=== PATIENT | female | born 1965 | race American Indian/Alaskan Native ===

== ENCOUNTER 2019-02-13 02:31 | Emergency (ER) | payer OTHER ==
[2019-02-13 02:54] LABS: Basophils % (Auto) 0.2 % (0.0-1.8); Eosinophils # (Auto) 0.2 K/mm3 (0.0-0.4); Hematocrit 33.5 % (30.3-42.9); Hemoglobin 10.4 gm/dl (10.1-14.3); Lymphocytes # (Auto) 2.1 K/mm3 (1.2-5.4); Lymphocytes % (Auto) 12.6 % (13.4-35.0); Mean Corpuscular HGB Conc 31 % (30-34); Monocytes # (Auto) 1.1 K/mm3 (0.0-0.8); Monocytes % (Auto) 6.7 % (0.0-7.3); Platelet Count 353 K/mm3 (140-440); Red Blood Count 5.51 M/mm3 (3.65-5.03)
[2019-02-13 03:13] LABS: Alanine Aminotransferase 12 units/L (7-56); Albumin 3.7 g/dL (3.9-5); BUN/Creatinine Ratio 13; Blood Urea Nitrogen 9 mg/dL (7-17); Calcium 10.2 mg/dL (8.4-10.2); Hemolysis Index 3
[2019-02-13 03:30] LABS: Mean Corpuscular Volume 61 fl (79-97); Red Cell Distribution Width 22.9 % (13.2-15.2)
[2019-02-13 03:35] LABS: Bilirubin,Urine NEG (Negative); Blood,Urine SM (Negative); Calcium Oxalate Crystals,Urine 3+; Color,Urine Amber (Yellow); HCG Qualitative,Urine Negative (Negative); Mucus,Urine 3+ /HPF; Urobilinogen,Urine < 2.0 mg/dL (<2.0)
[2019-02-13] MEDS ORDERED: ZOFRAN IV ONE (07:41)
[2019-02-13] MEDS ORDERED: MORPHINE IV ONE (07:41)
[2019-02-13] MEDS ORDERED: NACL 0.9% 1000 ML 1,000 ML IV ONE (07:41)
--- NOTE | 2019-02-13 07:49 | Emergency Department Report ---
ED General Adult HPI - General Chief complaint: Abdominal Pain Stated complaint: ABD PAIN/DIARRHEA/EMESIS Time Seen by Provider: 02/13/19 07:11 Source: patient Mode of arrival: Ambulatory Limitations: No Limitations - History of Present Illness Initial comments: Patient complains of nausea, vomiting, diarrhea since . Patient also complains of abdominal pain that she describes as sharp in nature. Patient is a very made her symptoms better or worse. She denies chest pain, shortness breath, or headache. -: Sudden Location: abdomen Radiation: non-radiation Severity scale (0 -10): 5 Quality: sharp Consistency: constant Improves with: none Worsens with: none Associated Symptoms: denies other symptoms Treatments Prior to Arrival: none - Related Data Previous Rx's Medication Instructions Recorded Last Taken Type Amlodipine Besylate [Norvasc] 5 mg PO QDAY #30 tablet 02/13/19 Unknown Rx Ciprofloxacin HCl [Ciprofloxacin 500 mg PO Q12H #20 tab 02/13/19 Unknown Rx TAB] HYDROcodone/APAP 7.5-325 [[place] 1 each PO Q6HR PRN #15 tablet 02/13/19 Unknown Rx 7.5/325] Ondansetron [Zofran Odt] 4 mg PO Q4HR PRN #20 tab.rapdis 02/13/19 Unknown Rx Promethazine [Phenergan TAB] 25 mg PO Q6HR PRN #20 tab 02/13/19 Unknown Rx metroNIDAZOLE [Flagyl] 500 mg PO Q12HR #20 tab 02/13/19 Unknown Rx Allergies Allergy/AdvReac Type Severity Reaction Status Date / Time No Known Allergies Allergy Unverified 02/13/19 02:34 ED Review of Systems ROS: Stated complaint: ABD PAIN/DIARRHEA/EMESIS Other details as noted in HPI Comment: All other systems reviewed and negative Constitutional: denies: chills, fever Eyes: denies: eye pain, eye discharge, vision change ENT: denies: ear pain, throat pain Respiratory: denies: cough, shortness of breath, wheezing Cardiovascular: denies: chest pain, palpitations Endocrine: no symptoms reported Gastrointestinal: abdominal pain. denies: nausea, diarrhea Genitourinary: denies: urgency, dysuria, discharge Musculoskeletal: denies: back pain, joint swelling, arthralgia Skin: denies: rash, lesions Neurological: denies: headache, weakness, paresthesias Psychiatric: denies: anxiety, depression Hematological/Lymphatic: denies: easy bleeding, easy bruising ED Past Medical Hx - Past Medical History Previous Medical History?: No - Surgical History Past Surgical History?: No - Social History Smoking Status: Never Smoker Substance Use Type: None - Medications Home Medications: Home Medications Medication Instructions Recorded Confirmed Last Taken Type Amlodipine Besylate [Norvasc] 5 mg PO QDAY #30 tablet 02/13/19 Unknown Rx Ciprofloxacin HCl [Ciprofloxacin 500 mg PO Q12H #20 tab 02/13/19 Unknown Rx TAB] HYDROcodone/APAP 7.5-325 [[place] 1 each PO Q6HR PRN #15 tablet 02/13/19 Unknown Rx 7.5/325] Ondansetron [Zofran Odt] 4 mg PO Q4HR PRN #20 tab.rapdis 02/13/19 Unknown Rx Promethazine [Phenergan TAB] 25 mg PO Q6HR PRN #20 tab 02/13/19 Unknown Rx metroNIDAZOLE [Flagyl] 500 mg PO Q12HR #20 tab 02/13/19 Unknown Rx ED Physical Exam - General Limitations: No Limitations General appearance: alert, in no apparent distress - Head Head exam: Present: atraumatic, normocephalic - Eye Eye exam: Present: normal appearance, PERRL, EOMI - ENT ENT exam: Present: mucous membranes dry - Neck Neck exam: Present: normal inspection - Respiratory Respiratory exam: Present: normal lung sounds bilaterally. Absent: respiratory distress - Cardiovascular Cardiovascular Exam: Present: regular rate, normal rhythm. Absent: systolic murmur, diastolic murmur, rubs, gallop - GI/Abdominal GI/Abdominal exam: Present: soft, tenderness (diffusely tender to palpation), normal bowel sounds. Absent: distended - Extremities Exam Extremities exam: Present: normal inspection - Back Exam Back exam: Present: normal inspection - Neurological Exam Neurological exam: Present: alert, oriented X3, CN II-XII intact. Absent: motor sensory deficit - Psychiatric Psychiatric exam: Present: normal affect, normal mood - Skin Skin exam: Present: warm, dry, intact, normal color. Absent: rash ED Course Vital Signs 02/13/19 02/13/19 02/13/19 02:35 02:36 07:37 Temperature 98.4 F 98.4 F 98.5 F Pulse Rate 92 H 91 H 82 Respiratory 18 18 19 Rate Blood Pressure 198/101 198/101 Blood Pressure 195/63 [Right] O2 Sat by Pulse 97 97 100 Oximetry 02/13/19 08:59 Temperature Pulse Rate 87 Respiratory 18 Rate Blood Pressure Blood Pressure 175/66 [Right] O2 Sat by Pulse 100 Oximetry ED Medical Decision Making - Lab Data Result diagrams: 02/13/19 02:41 02/13/19 02:41 Lab Results 02/13/19 02/13/19 02/13/19 Range/Units 02:41 02:41 03:11 WBC 16.7 H (4.5-11.0) K/mm3 RBC 5.51 H (3.65-5.03) M/mm3 Hgb 10.4 (10.1-14.3) gm/dl Hct 33.5 (30.3-42.9) % MCV 61 L (79-97) fl MCH 19 L (28-32) pg MCHC 31 (30-34) % RDW 22.9 H (13.2-15.2) % Plt Count 353 (140-440) K/mm3 Lymph % (Auto) 12.6 L (13.4-35.0) % [place] % (Auto) 6.7 (0.0-7.3) % Eos % (Auto) 1.0 (0.0-4.3) % Baso % (Auto) 0.2 (0.0-1.8) % Lymph # 2.1 (1.2-5.4) K/mm3 [place] # 1.1 H (0.0-0.8) K/mm3 Eos # 0.2 (0.0-0.4) K/mm3 Baso # 0.0 (0.0-0.1) K/mm3 Seg Neutrophils % 79.5 H (40.0-70.0) % Seg Neutrophils # 13.2 H (1.8-7.7) K/mm3 Sodium 142 (137-145) mmol/L Potassium 3.2 L (3.6-5.0) mmol/L Chloride 103.8 (98-107) mmol/L Carbon Dioxide 26 (22-30) mmol/L Anion Gap 15 mmol/L BUN 9 (7-17) mg/dL Creatinine 0.7 (0.7-1.2) mg/dL Estimated GFR > 60 ml/min BUN/Creatinine Ratio 13 % Glucose 116 H (65-100) mg/dL Calcium 10.2 (8.4-10.2) mg/dL Total Bilirubin 0.30 (0.1-1.2) mg/dL AST 11 (5-40) units/L ALT 12 (7-56) units/L Alkaline Phosphatase 140 H (35-129) units/L Total Protein 6.9 (6.3-8.2) g/dL Albumin 3.7 L (3.9-5) g/dL Albumin/Globulin Ratio 1.2 % Urine Color [place] (Yellow) Urine Turbidity Cloudy (Clear) Urine pH 5.0 (5.0-7.0) Ur Specific [place] 1.029 (1.003-1.030) Urine Protein 100 mg/dl (Negative) mg/dL Urine Glucose (UA) Neg (Negative) mg/dL Urine Ketones Neg (Negative) mg/dL Urine Blood Sm (Negative) Urine Nitrite Neg (Negative) Urine Bilirubin Neg (Negative) Urine Urobilinogen < 2.0 (<2.0) mg/dL Ur Leukocyte Esterase Lg (Negative) Urine WBC (Auto) 132.0 H (0.0-6.0) /HPF Urine RBC (Auto) 146.0 (0.0-6.0) /HPF U Epithel Cells (Auto) 21.0 H (0-13.0) /HPF Calcium Oxalate Crystal 3+ Urine Mucus 3+ /HPF Urine HCG, Qual Negative (Negative) - Radiology Data Radiology results: image reviewed - Medical Decision Making Discussed results with patient Critical care attestation.: If time is entered above; I have spent that time in minutes in the direct care of this critically ill patient, excluding procedure time. ED Disposition Clinical Impression: Colitis, UTI (urinary tract infection), Hypertension Disposition: TO HOME OR SELFCARE Is pt being admited?: No Does the pt Need Aspirin: No Condition: Stable Instructions: Abdominal Pain (ED), Infectious Colitis (ED), Hypertension (ED) Additional Instructions: return if worse Prescriptions: Ciprofloxacin HCl [Ciprofloxacin TAB] 500 mg PO Q12H #20 tab metroNIDAZOLE [Flagyl] 500 mg PO Q12HR #20 tab HYDROcodone/APAP 7.5-325 [[place] 7.5/325] 1 each PO Q6HR PRN #15 tablet PRN Reason: Pain Amlodipine Besylate [Norvasc] 5 mg PO QDAY #30 tablet Promethazine [Phenergan TAB] 25 mg PO Q6HR PRN #20 tab PRN Reason: Nausea Ondansetron [Zofran Odt] 4 mg PO Q4HR PRN #20 tab.rapdis PRN Reason: Nausea Referrals: BRYANNA FIGUEROAENON MD JESSIE [Primary Care Provider] - 3-5 Days [facility] [Provider Group] - 3-5 Days [facility] [Provider Group] - 3-5 Days Time of Disposition: 09:28
--- NOTE | 2019-02-13 08:57 | Cat Scan Report ---
PROCEDURE: CT ABDOMEN PELVIS W CON TECHNIQUE: CT of the abdomen and pelvis was performed. IV contrast was administered. Oral contrast wa s administered. Axial images and coronal and sagittal reformatted images were obtained. HISTORY: abdominal pain COMPARISON: None FINDINGS: The visualized lung bases are clear. The visualized spleen, pancreas, adrenal glands and kidneys demonstrate no significant abnormality. There are a few tiny low-density liver lesions which are too small to characterize but of doubtful si gnificance, most likely representing tiny cysts. There is no abdominal aortic aneurysm. There is no evidence for intestinal obstruction. There is a large amount of stool in the distal descending colon and proximal sigmoid colon. There is some wall thickening and pericolonic inflammation in this area. There is also small amount of free fl uid in the left paracolic gutter. Findings are worrisome for colitis. Although nonspecific, this coul d be stercoral cortical colitis given the prominent stool in this area. The appendix is not visualized. There is no abnormal fluid collection seen. There is no free intraperitoneal air. There are multiple uterine fibroids. Bladder is unremarkable. IMPRESSION: There are findings compatible with colitis involving the distal descending and proximal sigmoid colon . There is prominent stool distending the colon in this area. Although findings of colitis are nonspe cific, this could be stercoral colitis. Fibroid uterus. This document is electronically signed by Naila Campbell MD., Feb 13 2019 08:55:18 AM ET
[2019-02-13 10:09] VITALS: BP 169/67
== END 2019-02-13 10:08 | disposition home or self-care (01) ==
LOC: ED 02:31
DX: K52.9 Noninfective gastroenteritis and colitis, unspecified (principal); N39.0 Urinary tract infection, site not specified; I10 Essential (primary) hypertension
CPT/HCPCS: 36415; 74177; 80053; 81001; 81025; 85025; 96361; 96374; 96375; 99284; J2270; J2405; J7030; Q9967

== ENCOUNTER 2021-10-18 15:57 | Emergency (ER) | payer SELFPAY ==
[2021-10-18] MEDS ORDERED: ONDANSETRON 4 MG ODT TAB PO ONE (17:22)
[2021-10-18] MEDS ORDERED: SODIUM CHLORIDE 0.9% 1000 ML 1,000 ML IV ONE (17:23)
[2021-10-18 17:58] LABS: Basophils % (Auto) 0.5 % (0.0-1.8); Lymphocytes # (Auto) 1.2 K/mm3 (1.2-5.4); Lymphocytes % (Auto) 22.3 % (13.4-35.0); Mean Corpuscular HGB Conc 31 % (30-34); Monocytes # (Auto) 0.5 K/mm3 (0.0-0.8); Monocytes % (Auto) 9.6 % (0.0-7.3); Platelet Count 182 K/mm3 (140-440); Red Blood Count 6.57 M/mm3 (3.65-5.03)
[2021-10-18 18:11] LABS: Alanine Aminotransferase 57 units/L (7-56); Albumin 3.7 g/dL (3.9-5); BUN/Creatinine Ratio 15; Blood Urea Nitrogen 15 mg/dL (7-17); Calcium 9.6 mg/dL (8.4-10.2); Hemolysis Index 51
[2021-10-18 18:12] LABS: Hematocrit 45.1 % (30.3-42.9); Hemoglobin 13.8 gm/dl (10.1-14.3); Mean Corpuscular Volume 69 fl (79-97)
--- NOTE | 2021-10-18 18:13 | Emergency Department Report ---
ED N/V/D HPI - General Chief complaint: Nausea/Vomiting/Diarrhea Stated complaint: nausea and vomiting 5 days Time Seen by Provider: 10/18/21 17:05 Source: patient, old records reviewed Mode of arrival: Ambulatory Limitations: No Limitations - History of Present Illness Initial comments: 55-year-old female with no significant past medical history presents to the hospital complaining of nausea, vomiting for the last 6 days with decreased p.o. intake. Patient states she did temporarily lose her sense of taste but her sense of smell remained. She is unvaccinated for COVID. She denies sick contacts, abdominal pain, or fever. She complains of feeling weak and like she is dehydrated. She also states that her diarrhea has inflamed her hemorrhoid but denies rectal bleeding. Patient's blood pressure noted be elevated. History of being placed on BP medication here 2018. Patient states that this past October 03 her blood pressure was normal during PMD visit. Patient also complains of mild cough without shortness of breath - Related Data Previous Rx's Medication Instructions Recorded Last Taken Type Amlodipine Besylate [Norvasc] 5 mg PO QDAY #30 tablet 02/13/19 Unknown Rx Ciprofloxacin HCl [Ciprofloxacin 500 mg PO Q12H #20 tab 02/13/19 Unknown Rx TAB] HYDROcodone/APAP 7.5-325 [[place] 1 each PO Q6HR PRN #15 tablet 02/13/19 Unknown Rx 7.5/325] Promethazine [Phenergan TAB] 25 mg PO Q6HR PRN #20 tab 02/13/19 Unknown Rx metroNIDAZOLE [Flagyl] 500 mg PO Q12HR #20 tab 02/13/19 Unknown Rx Hydrocortisone [Anucort-HC SUPPOS] 25 mg RC BID PRN #28 10/18/21 Unknown Rx Ondansetron [Zofran ODT TAB] 4 mg PO Q4HR PRN #20 tab.rapdis 10/18/21 Unknown Rx Allergies Allergy/AdvReac Type Severity Reaction Status Date / Time No Known Allergies Allergy Unverified 02/13/19 02:34 ED Review of Systems ROS: Stated complaint: nausea and vomiting 5 days Other details as noted in HPI Comment: All other systems reviewed and negative ED Past Medical Hx - Past Medical History Previous Medical History?: No - Surgical History Past Surgical History?: No - Social History Smoking Status: Never Smoker Substance Use Type: None - Medications Home Medications: Home Medications Medication Instructions Recorded Confirmed Last Taken Type Amlodipine Besylate [Norvasc] 5 mg PO QDAY #30 tablet 02/13/19 Unknown Rx Ciprofloxacin HCl [Ciprofloxacin 500 mg PO Q12H #20 tab 02/13/19 Unknown Rx TAB] HYDROcodone/APAP 7.5-325 [[place] 1 each PO Q6HR PRN #15 tablet 02/13/19 Unknown Rx 7.5/325] Promethazine [Phenergan TAB] 25 mg PO Q6HR PRN #20 tab 02/13/19 Unknown Rx metroNIDAZOLE [Flagyl] 500 mg PO Q12HR #20 tab 02/13/19 Unknown Rx Hydrocortisone [Anucort-HC SUPPOS] 25 mg RC BID PRN #28 10/18/21 Unknown Rx Ondansetron [Zofran ODT TAB] 4 mg PO Q4HR PRN #20 tab.rapdis 10/18/21 Unknown Rx ED Physical Exam - General Limitations: No Limitations - Other Other exam information: General: No acute distress Head: Atraumatic Eyes: normal appearance ENT: Moist mucous membranes Neck: Normal appearance, no midline tenderness Chest: Clear to auscultation bilaterally CV: Regular rate and rhythm Abdomen: Soft, normal bowel sounds, nontender, nondistended, no rebound or guarding Back: Normal inspection Extremity: Normal inspection, full range of motion Neuro: Alert O x 3, no facial asymmetry, speech clear, no gross motor sensory deficit Psych: Appropriate behavior Skin: No rash ED Course Vital Signs 10/18/21 16:06 Temperature 97 F L Pulse Rate 74 Respiratory 16 Rate Blood Pressure 198/97 [Left] O2 Sat by Pulse 97 Oximetry ED Medical Decision Making - Lab Data Result diagrams: 10/18/21 17:28 10/18/21 17:28 Lab Results 10/18/21 10/18/21 Range/Units 17:28 17:28 WBC 5.3 (4.5-11.0) K/mm3 RBC 6.57 H (3.65-5.03) M/mm3 Hgb 13.8 (10.1-14.3) gm/dl Hct 45.1 H (30.3-42.9) % MCV 69 L (79-97) fl MCH 21 L (28-32) pg MCHC 31 (30-34) % RDW 15.0 (13.2-15.2) % Plt Count 182 (140-440) K/mm3 Lymph % (Auto) 22.3 (13.4-35.0) % [place] % (Auto) 9.6 H (0.0-7.3) % Eos % (Auto) 0.0 (0.0-4.3) % Baso % (Auto) 0.5 (0.0-1.8) % Lymph # (Auto) 1.2 (1.2-5.4) K/mm3 [place] # (Auto) 0.5 (0.0-0.8) K/mm3 Eos # (Auto) 0.0 (0.0-0.4) K/mm3 Baso # (Auto) 0.0 (0.0-0.1) K/mm3 Seg Neutrophils % 67.6 (40.0-70.0) % Seg Neutrophils # 3.6 (1.8-7.7) K/mm3 Sodium 139 (137-145) mmol/L Potassium 3.5 L (3.6-5.0) mmol/L Chloride 98.1 (98-107) mmol/L Carbon Dioxide 26 (22-30) mmol/L Anion Gap 18 mmol/L BUN 15 (7-17) mg/dL Creatinine 1.0 (0.6-1.2) mg/dL Estimated GFR > 60 ml/min BUN/Creatinine Ratio 15 % Glucose 122 H (65-100) mg/dL Calcium 9.6 (8.4-10.2) mg/dL Total Bilirubin 0.30 (0.1-1.2) mg/dL AST 63 H (5-40) units/L ALT 57 H (7-56) units/L Alkaline Phosphatase 142 H (35-129) units/L Total Protein 7.1 (6.3-8.2) g/dL Albumin 3.7 L (3.9-5) g/dL Albumin/Globulin Ratio 1.1 % Lipase 25 (13-60) units/L - Medical Decision Making 55-year-old female complains of nausea, vomiting, and diarrhea and reports inflamed hemorrhoids. Denies fever or abdominal pain. Abdomen nontender on examination. Labs reveal very mild hypokalemia and very mild elevation in LFTs. Patient does not have leukocytosis, fever, and has stable vital signs in the ED. Patient treated with Zofran and 1 L IV fluids. Patient symptoms improved therefore will be discharged with symptomatic treatment gastroenteritis/viral syndrome and outpatient referral PMD and GI recommended for repeat LFTs. COVId test recommended since patient is unvaccinated po potassium provided for mild hypokalemia - Differential Diagnosis Gastroenteritis, COVID, viral syndrome, dehydration Critical Care Time: No Critical care attestation.: If time is entered above; I have spent that time in minutes in the direct care of this critically ill patient, excluding procedure time. ED Disposition Clinical Impression: Gastroenteritis, Hemorrhoid Disposition: HOME / SELF CARE / HOMELESS Is pt being admited?: No Does the pt Need Aspirin: No Condition: Stable Instructions: Viral Gastroenteritis, Adult, [id number], Prevent the Spread of COVID-19 if You Are Sick - [facility] Additional Instructions: Take the medication as prescribed. Follow-up with your doctor or doctor/clinic provided. I recommend that you obtain an outpatient COVID test because your symptoms could be due to COVID. Your liver enzymes are very minimally elevated and should be repeated by your doctor Return if symptoms worsen as indicated by your discharge instructions. Prescriptions: Hydrocortisone [Anucort-HC SUPPOS] 25 mg RC BID PRN #28 PRN Reason: Hemorrhoids Ondansetron [Zofran ODT TAB] 4 mg PO Q4HR PRN #20 tab.rapdis PRN Reason: Nausea Referrals: PRIMARY CARE, [Primary Care Provider] - 3-5 Days JOSÉ MIGUEL WILKINS MD [Staff Physician] - 3-5 Days [facility] [Provider Group] - 3-5 Days
[2021-10-18] MEDS ORDERED: POTASSIUM CHLORIDE ER 20 MEQ TAB PO ONE (19:24)
[2021-10-18] MEDS ORDERED: ONDANSETRON 4 MG/2 ML INJ IV ONE (21:08)
[2021-10-18 22:36] VITALS: BP 150/89
== END 2021-10-18 22:43 | disposition home or self-care (01) ==
LOC: ED 15:57
DX: K52.9 Noninfective gastroenteritis and colitis, unspecified (principal); K64.9 Unspecified hemorrhoids; R05.9 Cough, unspecified; R11.2 Nausea with vomiting, unspecified
CPT/HCPCS: 36415; 80053; 83690; 85025; 96360; 99283; J7030; J3490; Q0162